=== PATIENT | male | born 1965 | race African-American/Black ===

== ENCOUNTER 2021-01-04 08:58 | Emergency (ER) | payer OTHER ==
[~2021-01-04] VITALS: Ht 210.8 cm; Wt 102.1 kg
[~2021-01-04 08:58] MED LIST: NO REPORTED MEDS
[2021-01-04 09:20] VITALS: BP 137/80
== END 2021-01-04 09:27 | disposition home or self-care (01) ==
LOC: ER 09:02
DX: Z00.8 Encounter for other general examination (principal)

== ENCOUNTER 2021-06-06 18:17 | Emergency (ER) | payer OTHER ==
[~2021-06-06] VITALS: Ht 180.3 cm; Wt 97.5 kg
--- NOTE | 2021-06-06 19:52 | NUR ---
COVID SWAB ANS INFLUENZA COLLECTED AND SENT TO LAB
[2021-06-06 19:53] VITALS: BP 142/84
--- NOTE | 2021-06-13 14:26 | NUR ---
+COVID. PT CALLED AND NOTIFIED.
== END 2021-06-06 19:53 | disposition home or self-care (01) ==
LOC: ER 18:20
DX: U07.1 COVID-19 (principal); R03.0 Elevated blood-pressure reading, without diagnosis of hypertension
CPT/HCPCS: C9803; U0003